=== PATIENT | male | born 1980 | race Caucasian/White ===

== ENCOUNTER 2019-12-06 13:00 | Emergency (ER) | payer MEDICAID, MEDICARE, OTHER ==
[~2019-12-06] VITALS: Ht 167.6 cm; Wt 53.5 kg
[2019-12-06 13:03] VITALS: BP 128/83
[2019-12-06 13:42] LABS: BASOPHILS # (AUTO) 0.1 /CMM (0.0-0.2); BASOPHILS % (AUTO) 0.8 % (0.0-2.0); EOSINOPHILS % (AUTO) 0.7 % (0.0-6.0); HEMATOCRIT 38 % (39-51); HEMOGLOBIN 13.2 g/dL (13.5-17.5); LYMPHOCYTES # (AUTO) 1.1 /CMM (0.8-4.8); LYMPHOCYTES % (AUTO) 15.3 % (20.0-44.0); MEAN CORPUSCULAR HGB CONC 35 g/dl (31.0-36.0); MEAN CORPUSCULAR VOLUME 83 fL (80-96); MONOCYTES # (AUTO) 0.4 /CMM (0.1-1.30); MONOCYTES % (AUTO) 5.3 % (2.0-12.0); NEUTROPHILS # (AUTO) 5.6 /CMM (1.8-8.9); NEUTROPHILS % (AUTO) 77.9 % (43.0-81.0); PLATELET COUNT (AUTO) 226 /CMM (150-450); RED BLOOD CELL COUNT(AUTO) 4.58 MIL/uL (4.5-6.0); WHITE BLOOD COUNT (AUTO) 7.2 K/uL (4.3-11.0)
[2019-12-06 13:49] LABS: CALCIUM, SERUM 9.4 mg/dL (8.5-10.1); CREATININE 0.6 mg/dL (0.6-1.3)
--- NOTE | 2019-12-06 14:47 | NUR ---
seen by rasta cunha.
--- NOTE | 2019-12-06 14:51 | NUR ---
PT. VERBALIZED UNDERSTANDING OF AFTERCARE INSTRUCTIONS.Patient discharged to home in stable condition. Written and verbal after care instructions given. Patient verbalizes understanding of instruction.
--- NOTE | 2019-12-06 14:51 | NUR ---
Social service consult requested by MARIZA Sutton for homelessness. Per MD notes, pt is a 39 year old male with no significant past medical history Pt presented to [facility] with accidental needlestick to right middle finger 2 days. Pt stated that he was cleaning his area at a homeless encampment when he accidentally got stuck with a dirty needle. BODY MAKER MACHINE SETTER met with the pt in ED. Pt is alert and oriented x 4. Pt appeared well groomed. Pt. stated she is working with [email or web address] and in process of applying for housing. Pt denies any alcohol and drug use. Pt. reports to smoking 5 to 6 cigarettes per day. Pt. receives $1030 in [employer] per month and $15 in Food stamps. Pt informed BODY MAKER MACHINE SETTER she did not need any homeless resources or senior care resources. Homeless patient waiver form was signed by the pt and placed in pt's chart. No other social service needs are requested at this time. Addendum: 12/06/19 at 1511 by CLAUDIA HUERTA When KATELYN Silveira requested for pt to remove name ID band, pt refused stating, " I need it for my ID."
== END 2019-12-06 14:52 | disposition home or self-care (01) ==
LOC: ER 13:00
DX: S61.232A Puncture wound without foreign body of right middle finger without damage to nail, initial encounter (principal); J18.9 Pneumonia, unspecified organism; F41.9 Anxiety disorder, unspecified; Z59.0 Homelessness; W46.0XXA Contact with hypodermic needle, initial encounter; Y93.E8 Activity, other personal hygiene; Y92.89 Other specified places as the place of occurrence of the external cause; Y99.8 Other external cause status
CPT/HCPCS: 36415; 71045-TC; 80048-TC; 80074; 85025-TC; 87806

== ENCOUNTER 2021-04-18 15:55 | Emergency (ER) | payer MEDICARE, OTHER ==
--- NOTE | 2021-04-18 16:13 | NUR ---
called for triage not in the waiting room
--- NOTE | 2021-04-18 16:20 | NUR ---
called for triage not in the waiting room
--- NOTE | 2021-04-18 16:25 | NUR ---
called for triage not in the waiting room
== END 2021-04-18 16:26 | disposition home or self-care (01) ==
LOC: ER 15:59
DX: Z53.21 Procedure and treatment not carried out due to patient leaving prior to being seen by health care provider (principal)

== ENCOUNTER 2021-05-07 07:07 | Emergency (ER) | payer SELFPAY ==
[~2021-05-07] VITALS: Ht 165.1 cm; Wt 59.0 kg
--- NOTE | 2021-05-07 07:15 | NUR ---
per patient not ready for triage yet.
[2021-05-07 07:23] VITALS: BP 121/79
--- NOTE | 2021-05-07 07:49 | NUR ---
pt was seen by leonila wiggins. verbally discharged.
== END 2021-05-07 07:51 | disposition home or self-care (01) ==
LOC: ER 07:10
DX: F19.10 Other psychoactive substance abuse, uncomplicated (principal); R45.1 Restlessness and agitation; F41.9 Anxiety disorder, unspecified; F43.10 Post-traumatic stress disorder, unspecified; F12.90 Cannabis use, unspecified, uncomplicated

== ENCOUNTER 2021-06-28 13:12 | Emergency (ER) | payer SELFPAY ==
[~2021-06-28] VITALS: Ht 170.2 cm; Wt 63.5 kg
[2021-06-28 13:28] VITALS: BP 126/68
--- NOTE | 2021-06-28 13:40 | NUR ---
Patient discharged to home in stable condition. Written and verbal after care instructions given. Patient verbalizes understanding of instruction.
== END 2021-06-28 13:38 | disposition left against medical advice (07) ==
LOC: ER 13:12
DX: Z53.21 Procedure and treatment not carried out due to patient leaving prior to being seen by health care provider (principal); F43.10 Post-traumatic stress disorder, unspecified; F41.9 Anxiety disorder, unspecified

== ENCOUNTER 2023-02-04 16:58 | Emergency (ER) | payer SELFPAY ==
[~2023-02-04] VITALS: Ht 165.1 cm; Wt 61.0 kg
--- NOTE | 2023-02-04 17:10 | NUR ---
[id number] FOR BIZAR[employer], AGGRESSIVE AND THREATENING TO CUT HER WRIST ADMITS TAKING METH. THE PATIENT IS ALERT TO HIS NAME. IN ROOM AIR AND DENIES SOB. RESPIRATION REGULAR AND UNLABORED. DENIES PAIN. DENIES SI/HI. WILL CONTINUE TO MONITOR THE PATIENT.
[2023-02-04 17:44] LABS: BASOPHILS % (AUTO) 0.3 % (0.0-2.0); EOSINOPHILS % (AUTO) 0.3 % (0.0-6.0); HEMATOCRIT 40 % (39-51); HEMOGLOBIN 13.3 g/dL (13.5-17.5); LYMPHOCYTES # (AUTO) 0.8 K/uL (0.8-4.8); LYMPHOCYTES % (AUTO) 5.9 % (20.0-44.0); MEAN CORPUSCULAR HGB CONC 33 g/dl (31.0-36.0); MEAN CORPUSCULAR VOLUME 84 fL (80-96); MONOCYTES % (AUTO) 7.8 % (2.0-12.0); NEUTROPHILS # (AUTO) 11.2 K/uL (1.8-8.9); NEUTROPHILS % (AUTO) 85.7 % (43.0-81.0); PLATELET COUNT (AUTO) 281 K/uL (150-450); RED BLOOD CELL COUNT(AUTO) 4.77 MIL/uL (4.5-6.0); WHITE BLOOD COUNT (AUTO) 13.1 K/uL (4.3-11.0)
[2023-02-04 17:59] LABS: ALANINE AMINOTRANSFERASE 26 U/L (12-78); ALBUMIN 3.9 g/dL (3.4-5.0); ALKALINE PHOSPHATASE 80 U/L (46-116); ASPARTATE AMINOTRANSFERASE 25 U/L (15-37); BILIRUBIN,DIRECT 0.2 mg/dL (0.0-0.2); BILIRUBIN,TOTAL 0.8 mg/dL (0.2-1.0); CALCIUM, SERUM 9.5 mg/dL (8.5-10.1); CARBON DIOXIDE 24 mmol/L (21-32); CHLORIDE 105 mmol/L (98-107); CREATININE 0.7 mg/dL (0.6-1.3); GLUCOSE 123 mg/dL (74-106); POTASSIUM 3.7 mmol/L (3.5-5.1); SODIUM SERUM 140 mmol/L (136-145); TOTAL PROTEIN, SERUM 7.7 g/dL (6.4-8.2); UREA NITROGEN, BLOOD 15 mg/dL (7-18)
[2023-02-04 18:00] LABS: ACETAMINOPHEN < 10 ug/ml (10-30); ALCOHOL, BLOOD < 3 mg/dL (0-0)
[2023-02-04] MEDS ORDERED: OLANZAPINE 10 MG VIAL IM ONE ×2 (21:00→22:01)
--- NOTE | 2023-02-04 22:23 | NUR ---
GRACIELA EDMONDSON WAS CALLED AND WILL BE COMING IN AN HOUR FOR PSYCH EVAL.
[2023-02-05] MEDS ORDERED: HALOPERIDOL LACTATE INJ 5 MG/ML VIAL ONE (01:29)
[2023-02-05] MEDS ORDERED: HALOPERIDOL LACTATE INJ 5 MG/ML VIAL IM ONE (01:30)
--- NOTE | 2023-02-05 03:57 | NUR ---
urine collected, sent to lab
[2023-02-05 04:16] LABS: BILIRUBIN,URINE 2+ (NEGATIVE); COLOR,URINE DARK YELLOW (YELLOW); LEUKOCYTE ESTERASE ,URINE NEGATIVE (NEGATIVE); NITRITE, URINE NEGATIVE (NEGATIVE); PH,URINE 5.5 (5.0-8.0); PROTEIN,URINE 1+ mg/dl (NEGATIVE); UGLUCOSE NEGATIVE (NEGATIVE); UROBILINOGEN,URINE 0.2 EU/dL (0.2)
[2023-02-05 04:17] LABS: BACTERIA,URINE Rare /HPF (None Seen); SQUAMOUS EPITHELIAL CELL,UR Many /HPF (None Seen); WBC,URINE 0-2 /HPF (0-3)
--- NOTE | 2023-02-05 05:45 | NUR ---
DIONICIO WEBBER AT BEDSIDE FOR EVAL.
--- NOTE | 2023-02-05 06:35 | NUR ---
PT ALREADY ASKING TO GO HOME ALREADY. MADE AWARE.
--- NOTE | 2023-02-05 06:44 | NUR ---
PT IS MEDICALLY AND PSYCHIATRICALLY CLEARED FOR DISCHARGE. PT IS IN STABLE CONDITION. PT IS AMBULATORY ON [facility] GAIT.
[2023-02-05 06:45] VITALS: BP 143/76
== END 2023-02-05 06:46 | disposition home or self-care (01) ==
LOC: ER 17:00
DX: F29 Unspecified psychosis not due to a substance or known physiological condition (principal); R45.1 Restlessness and agitation; F41.9 Anxiety disorder, unspecified; Z20.822 Contact with and (suspected) exposure to COVID-19
CPT/HCPCS: 99284; 96372 ×2; 85025; 80048; 80076; 36415; 87426; 80143; 80320; 80307; 81001; J3490; C9803; J1630; G0480